=== PATIENT | female | born 1970 | race Two or more races ===

== ENCOUNTER 2017-11-21 11:47 | Inpatient (IN) | payer OTHER ==
[~2017-11-21] VITALS: Ht 160 cm; Wt 78.5 kg
[2017-12-09] MEDS ORDERED: SYNTHROID100 MCG PO (08:51)
[2017-12-09] MEDS ORDERED: CLONAZEPAM0.5 MG PO (08:52)
[2017-12-09] MEDS ORDERED: ZOLOFT100 MG PO (08:52)
[2017-12-09] MEDS ORDERED: PRILOSEC10 MG PO (08:52)
[2017-12-09] MEDS ORDERED: CLONAZEPAM2 MG PO (08:52)
[2017-12-09] MEDS ORDERED: AMBIEN10 MG PO (08:53)
== END 2017-12-17 14:38 | disposition home or self-care (01) | DRG 330 ==
LOC: O/R 12-14 09:28 → SURH 12-14 09:28 → RECOVERY 12-15 13:15 → SURH 12-17 14:38
PROVIDERS: Colon & Rectal Surgery
PROC: 0UT14ZZ Resection of Left Ovary, Percutaneous Endoscopic Approach (ICD-10-PCS; 2017-12-14)
PROC: 0DJD8ZZ Inspection of Lower Intestinal Tract, Via Natural or Artificial Opening Endoscopic (ICD-10-PCS; 2017-12-14)
PROC: 0DTN4ZZ Resection of Sigmoid Colon, Percutaneous Endoscopic Approach (ICD-10-PCS; principal; 2017-12-14 15:15)
DX: K57.20 Diverticulitis of large intestine with perforation and abscess without bleeding (principal); D27.1 Benign neoplasm of left ovary; N73.6 Female pelvic peritoneal adhesions (postinfective); K31.7 Polyp of stomach and duodenum; E03.8 Other specified hypothyroidism

== ENCOUNTER 2017-12-23 16:36 | Inpatient (IN) | payer OTHER ==
[~2017-12-23] VITALS: Ht 160 cm; Wt 76.2 kg
[~2017-12-23 16:36] MED LIST: AMBIEN10 MG PO; CLONAZEPAM0.5 MG PO; CLONAZEPAM2 MG PO; PRILOSEC10 MG PO; SYNTHROID100 MCG PO; ZOLOFT100 MG PO
== END 2017-12-26 15:27 | disposition home or self-care (01) | DRG 392 ==
LOC: ER 16:36 → SEC-K 12-24 08:54 → MEDJ 12-24 17:23
PROC: BW21YZZ Computerized Tomography (CT Scan) of Abdomen and Pelvis using Other Contrast (ICD-10-PCS; principal; 2017-12-24)
PROC: 8E0ZXY6 Isolation (ICD-10-PCS; 2017-12-24)
DX: A09 Infectious gastroenteritis and colitis, unspecified (principal); F41.8 Other specified anxiety disorders; E03.8 Other specified hypothyroidism; K76.0 Fatty (change of) liver, not elsewhere classified

== ENCOUNTER 2018-05-05 06:15 | Day surgery (SDC) | payer OTHER | END 2018-05-05 11:40 | disposition home or self-care (01) | LOC: AMB-ENDOS 06:15 | DX: K57.32 Diverticulitis of large intestine without perforation or abscess without bleeding (principal); K64.1 Second degree hemorrhoids ==

== ENCOUNTER 2019-02-16 09:42 | Day surgery (SDC) | payer OTHER | END 2019-02-16 15:58 | disposition home or self-care (01) | LOC: AMB-ENDOS 09:42 | DX: K57.30 Diverticulosis of large intestine without perforation or abscess without bleeding (principal); K64.2 Third degree hemorrhoids ==

== ENCOUNTER 2021-06-19 06:00 | Day surgery (SDC) | payer OTHER | END 2021-06-19 10:10 | disposition home or self-care (01) | LOC: AMB-ENDOS 06:00 | PROVIDERS: ATTEND Colon & Rectal Surgery | DX: D12.0 Benign neoplasm of cecum (principal); K64.2 Third degree hemorrhoids ==

== ENCOUNTER 2021-06-26 13:27 | Emergency (ER) | payer OTHER ==
[~2021-06-26] VITALS: Ht 160 cm; Wt 65.8 kg
[2021-06-26] MEDS ORDERED: MULTI VITAMIN1 EACH PO (13:39)
[2021-06-26] MEDS ORDERED: CYMBALTA60 MG PO (13:39)
== END 2021-06-26 19:37 | disposition home or self-care (01) ==
LOC: ER 13:27
DX: R10.32 Left lower quadrant pain (principal)

== ENCOUNTER 2022-09-02 07:00 | Inpatient (IN) | payer OTHER ==
[~2022-09-02] VITALS: Ht 160 cm; Wt 64.4 kg
[~2022-09-02 07:00] MED LIST changes: +CYMBALTA60 MG PO; +MULTI VITAMIN1 EACH PO
[2022-09-06] MEDS ORDERED: COLACE100 MG PO (08:31)
[2022-09-06] MEDS ORDERED: ZOFRAN8 MG PO (08:33)
[2022-09-06] MEDS ORDERED: PERCOCET 5-3251 EACH PO (08:33)
[2022-09-06] MEDS ORDERED: MEDROLPACK PO (08:33)
[2022-09-06] MEDS ORDERED: BENADRYL25 MG PO (08:33)
== END 2022-09-07 14:16 | disposition home or self-care (01) | DRG 472 ==
LOC: PED 09-06 05:40 → O/R 09-06 05:40 → SURH 09-06 07:00 → ICU-2 09-06 07:00 → SURH 09-06 11:56 → PED 09-06 13:44 → SURH 09-06 14:30 → PED 09-07 14:16
PROVIDERS: ADMIT Orthopaedic Surgery Orthopaedic Surgery of the Spine; ATTEND Orthopaedic Surgery Orthopaedic Surgery of the Spine
PROC: 0RT30ZZ Resection of Cervical Vertebral Disc, Open Approach (ICD-10-PCS; 2022-09-06)
PROC: 07DS0ZZ Extraction of Vertebral Bone Marrow, Open Approach (ICD-10-PCS; 2022-09-06)
PROC: 0RG20A0 Fusion of 2 or more Cervical Vertebral Joints with Interbody Fusion Device, Anterior Approach, Anterior Column, Open Approach (ICD-10-PCS; principal; 2022-09-06 14:30)
DX: M50.021 Cervical disc disorder at C4-C5 level with myelopathy (principal); M47.12 Other spondylosis with myelopathy, cervical region; M48.02 Spinal stenosis, cervical region; M24.28 Disorder of ligament, vertebrae